=== PATIENT | female | born 1960 | race Caucasian/White ===

== ENCOUNTER 2024-02-07 16:31 | Emergency (ER) | payer OTHER, SELFPAY ==
[2024-02-07 16:38] VITALS: BP 148/72; PULSE 80; TEMP 36.8; O2SAT 98; BMI 29.5
--- NOTE | 2024-02-07 17:53 | ED.SKABFB1 ---
HPI - Skin/Abscess/Foreign Bdy General Chief complaint: Skin/Abscess/Foreign Body Stated complaint: Lower Extremity Pain Time Seen by Provider: 02/07/24 17:46 Source: patient Mode of arrival: walk-in History of Present Illness HPI narrative: This patient is here complaining a possible infection on the top of her foot. She was at another local emergency room recently. She said they poked a needle in the top of her foot where she had some swelling told her she had cellulitis. She was placed on Keflex and is on day 5 or 6 of that. She is not a diabetic. She says her doctor just checked her for that recently. She has not had any other trauma or injury. She has no red streaking near the top of her foot. She does not have any skin infections and has no history of MRSA. She has not had fever shakes or chills. Clinical examination Related Data Allergies Allergy/AdvReac Type Severity Reaction Status Date / Time Sulfa (Sulfonamide Allergy Severe Verified 02/07/24 16:45 Antibiotics) Exam Narrative Exam Narrative: Clinical examination shows a round 1 cm blister at the metatarsal tarsal juncture at the third digit. There is a little bit of purulent drainage. I should also mention that her skin hygiene she has a lot of dirt on her feet despite showering this morning she states. We did talk about that. Neurovascular exam is normal with good arterial supply and dorsalis pedis pulse. The intertriginous spaces are unremarkable. There is no lymphangitis or cellulitis. Constitutional Vital Signs, click to edit/add: Last Vital Signs Temp 98.2 F 02/07/24 16:38 Pulse 80 02/07/24 16:38 Resp 16 02/07/24 16:38 BP 148/72 H 02/07/24 16:38 Pulse Ox 98 02/07/24 16:38 O2 Del Method Room Air 02/07/24 16:38 Course Vital Signs Vital signs: Vital Signs Temperature 98.2 F 02/07/24 16:38 Pulse Rate 80 02/07/24 16:38 Respiratory Rate 16 02/07/24 16:38 Blood Pressure 148/72 H 02/07/24 16:38 Pulse Oximetry 98 02/07/24 16:38 Oxygen Delivery Method Room Air 02/07/24 16:38 Temperature 98.2 F 02/07/24 16:38 Pulse Rate 80 02/07/24 16:38 Respiratory Rate 16 02/07/24 16:38 Blood Pressure 148/72 H 02/07/24 16:38 Pulse Oximetry 98 02/07/24 16:38 Oxygen Delivery Method Room Air 02/07/24 16:38 MDM - Skin/Abscess/Foreign Bdy MDM Narrative Medical decision making narrative: After explaining to the patient we will debride this blistered up area and cleanse it with pHisoHex and then apply clean dressings. We implored her to keep her feet clean her at all times that she can finish the Keflex I do not see any indication of complications or foot cellulitis at this time Discharge Plan Discharge Stand Alone Forms: Portal Instructions Chief Complaint: Skin/Abscess/Foreign Body Clinical Impression: Abrasion of foot with infection Patient Disposition: Home, Self-Care Time of Disposition Decision: 17:57 Print Language: B[place] Additional Instructions: Finish the antibiotics. Apply topical antibiotic ointment to the area keep feet meticulously clean. Follow-up with Dr. Dunlap as needed Referrals: [facility] [Primary Care Provider] - 1 week
--- NOTE | 2024-02-07 18:00 | PC.NURSE ---
top of right foot just below the toes is an area that appears like a fluid filled blister. pt reports this was drained by another facility and is on ATB's. No swelling or redness around this area observed. pt points out dark flat areas to left lower leg and states she is concerned with cellulitis. This nurse explains that these do not look like cellulitis. pt alert and appropriate.
[2024-02-07] MEDS: BACITRACIN 0.9 GM PACKET 1 PACKET TOPICAL (19:00)
== END 2024-02-07 19:05 | disposition home or self-care (01) ==
PROVIDERS: Emergency Provider Emergency Medicine Emergency Medical Services
DX: S90.811A Abrasion, right foot, initial encounter (principal); L08.9 Local infection of the skin and subcutaneous tissue, unspecified; X58.XXXA Exposure to other specified factors, initial encounter
CPT/HCPCS: 99282